=== PATIENT | female | born 1935 | race American Indian/Alaskan Native ===

== ENCOUNTER 2020-07-09 12:10 | Inpatient (IN) | payer MEDICARE, MEDICAID ==
[~2020-07-09] VITALS: Ht 165.1 cm; Wt 64.9 kg
[2020-07-09 12:17] VITALS: BP 90/46
[2020-07-09] MEDS ORDERED: ASA81BEC PO (12:29)
[2020-07-09] MEDS ORDERED: COLACE100 MG PO (12:30)
[2020-07-09] MEDS ORDERED: TRICOR145 MG PO (12:30)
[2020-07-09] MEDS ORDERED: LEXAPRO20 MG PO (12:30)
[2020-07-09] MEDS ORDERED: SLOW FE142 MG PO (12:31)
[2020-07-09] MEDS ORDERED: SEROQUEL 50 MG50 M1 PO (12:31)
[2020-07-09] MEDS ORDERED: SEROQUEL 100 M100 M1 PO (12:31)
[2020-07-09] MEDS ORDERED: SIMVASTATIN80 MG PO (12:32)
[2020-07-09] MEDS ORDERED: DESYREL150 MG PO (12:32)
[2020-07-09 12:33] LABS: ABSOLUTE BASOPHILS 0.1 thou/uL (0.0-0.2); ABSOLUTE EOSINOPHILS 0.5 thou/uL (0.0-0.7); ABSOLUTE LYMPHOCYTES 1.6 thou/uL (0.8-5.3); ABSOLUTE MONOCYTES 1.2 thou/uL (0.0-1.2); ABSOLUTE NEUTROPHILS 5.1 thou/uL (1.6-8.1); BASOPHILS 0.8 %; EOSINOPHILS 5.4 %; HEMATOCRIT 38.4 % (37.0-47.0); HEMOGLOBIN 12.9 gm/dL (12.0-15.0); LYMPHOCYTES 19.3 %; MCH 33.7 pg (26.0-34.0); MCHC 33.5 g/dL (28.0-37.0); MCV 100.5 fL (80.0-100.0); MONOCYTES 14.6 %; MPV 10.3 fl. (7.2-11.1); NUCLEATED RBCS 0 /100WBC; PLATELET COUNT* 147 thou/uL (150-400); POLYS 59.9 %; RBC 3.82 mil/uL (4.20-5.00); RDW-CV 14.9 % (10.5-14.5); WBC 8.4 thou/uL (4.0-11.0)
[2020-07-09] MEDS ORDERED: ULTRAM50 MG PO (12:33)
[2020-07-09] MEDS ORDERED: NAMENDA 10 MG T10 MG PO (12:33)
[2020-07-09] MEDS ORDERED: DEPAKOTE ER250 MG PO (12:33)
[2020-07-09] MEDS ORDERED: OXYBUTYNIN 5 MG5 M2 PO (12:34)
[2020-07-09] MEDS ORDERED: KLONOPIN0.5 MG PO (12:34)
[2020-07-09] MEDS ORDERED: IBUPROFEN200 MG PO (12:34)
[2020-07-09 12:40] LABS: CREATININE 1.2 mg/dL (0.6-1.3); POTASSIUM 3.7 mmol/L (3.5-5.1)
[2020-07-09 12:44] LABS: ALBUMIN 2.6 g/dL (3.4-5.0); TOTAL BILIRUBIN 0.7 mg/dL (<0.1-1.0); TOTAL PROTEIN 6.5 g/dL (6.4-8.2)
[2020-07-09 15:20] VITALS: BP 104/43
[2020-07-09 16:00] VITALS: BP 109/54
[2020-07-09 16:26] VITALS: BP 109/54
--- NOTE | 2020-07-09 17:13 | EKG ---
[place] [address] ELECTROCARDIOGRAM REPORT Name: JANET CORTES Room: [address] M.R.#: [id number] Admission: 07/09/20 Attend Phys: Oli Ann, Discharge: Date of : 39 Date of Service: 07/09/20 1215 Report #: [id number] THIS REPORT FOR: //name// [facility] ED Test Date: 2020-07-09 Test Time: 12:15:28 Pat Name: JANET CORTES Department: Room: [facility] Gender: F Lav Crewman: AARON : 1935 Requested By: Valdez Coreas Order Number: [id number] MD: Oni Moses Measurements Intervals Rosser Rate: 77 P: 94 NE: 147 QRS: 84 QRSD: 92 T: QT: 435 QTc: 493 Interpretive Statements Sinus rhythm Borderline right axis deviation Borderline low voltage, extremity leads Borderline repolarization abnormality Borderline prolonged QT interval Baseline wander in lead(s) III,aVF No previous ECG available for comparison Electronically Signed On 07-09-2020 17:13:13 CDT by Oni Moses [email or web address] <ELECTRONICALLY SIGNED> By: Luther Moses MD, FACC 07/09/20 1713 14 14 Luther Moses MD, FACC /EPI
[2020-07-09 17:30] VITALS: BP 98/60
[2020-07-09 20:00] VITALS: BP 99/44
[2020-07-10] VITALS: BP 89/41
[2020-07-10 04:00] VITALS: BP 90/41
[2020-07-10 08:00] VITALS: BP 115/55
[2020-07-10 12:00] VITALS: BP 89/44
[2020-07-10 14:43] LABS: URINE BLOOD NEGATIVE (Negative); URINE CLARITY CLEAR; URINE COLOR DARK YELLOW; URINE GLUCOSE-RANDOM NEGATIVE (Negative); URINE KETONES TRACE (Negative); URINE NITRITE-REFLEX NEGATIVE (Negative); URINE PROTEIN NEGATIVE (Negative)
[2020-07-10 14:44] LABS: URINE BILIRUBIN 2+ (Negative); URINE LEUKOCYTES-REFLEX 2+ (Negative)
[2020-07-10 14:45] LABS: ICTOTEST (BILI CONFIRMATORY) Negative (Negative)
[2020-07-10 14:50] LABS: SQUAMOUS 0-3 Few /LPF (0-3)
[2020-07-10 14:51] LABS: URINE RBC 0-2 Rare /HPF (0-2)
[2020-07-10 14:53] LABS: BACTERIA-REFLEX 1-9 Few /HPF (None Seen); CASTS None Seen /LPF (None Seen); CRYSTALS None Seen /LPF (None Seen); MUCUS None Seen strn/LPF (None Seen); URINE WBC-REFLEX 0-5 Rare /HPF (0-5)
--- NOTE | 2020-07-10 14:55 | 2DMMODE ---
[place] [address] 2 D/M-MODE ECHOCARDIOGRAM Name: JANET CORTES Room: [address] IN ..#: [id number] Admission: 07/09/20 Attend Phys: Oli Ann, Discharge: Date of : 39 Date of Service: 07/10/20 1455 Report #: [id number] THIS REPORT FOR: cc: Harlan Savage MD, Michael H. MD Holkins, John M. MD [facility] ~ APPROVED REPORT Study performed: 07/10/2020 11:09:50 EXAM: Comprehensive 2D, Doppler, and color-flow Echocardiogram Patient Location: Bedside BSA: 1.70 HR: 68 bpm Other Information Study Quality: Technically Limited Technically limited study due to inability to position patient. Indications CVA/TIA Echo Enhancing Agent Indication: Rule out Shunt Agent(s) / Amount(s) Used: Agitated Saline cc 2D Dimensions IVSd: 15.99 (7-11mm) LVOT Diam: 24.43 (18-24mm) LVDd: 46.12 mm PWd: 10.95 (7-11mm) Ascending Ao: 30.84 (22-36mm) LVDs: 28.45 (25-40mm) Aortic Root: 28.86 mm Volumes Left Atrial Volume (Systole) LA ESV Index: 20.20 mL/m2 Aortic Valve AoV Peak Jose.: 0.85 m/s AO Peak Gr.: 2.87 mmHg LVOT Max P.98 mmHg AO Mean Gr.: 1.47 mmHg LVOT Mean P.[address] [address] 2 D/M-MODE ECHOCARDIOGRAM Name: JANET CORTES Cameron Room: [address] IN [facility]#: [id number] Admission: 07/09/20 Attend Phys: Oli Ann, Discharge: Date of : 39 Date of Service: 07/10/20 1455 Report #: [id number] LVOT Max V: 0.70 m/s AO V2 VTI: 14.58 cm LVOT Mean V: 0.50 m/s MAHI (VTI): 6.16 cm2 LVOT V1 VTI: 19.16 cm Mitral Valve E/A Ratio: 0.67 MV Decel. Time: 171.97 ms MV E Max Jose.: 0.33 m/s MV PHT: 49.87 ms MVA (PHT): 4.41 cm2 TDI E/Lateral E': 3.30 E/Medial E': 3.67 Medial E' Jose.: 0.09 m/s Lateral E' Jose.: 0.10 m/s Left Ventricle The left ventricle is normal size. There is normal LV segmental wall motion. There is normal left ventricular wall thickness. Left ventricular systolic function is normal. The left ventricular ejection fraction is within the normal range. LVEF is 60%. Grade I - abnormal relaxation pattern. Right Ventricle The right ventricle is normal size. The right ventricular systolic function is normal. Atria The left atrium size is normal. Interatrial septum not well visualized. Injection of bubbles is not conclusive due to poor image quality. The right atrium size is normal. Aortic Valve The aortic valve is normal in structure. No aortic regurgitation is present. There is no aortic valvular stenosis. Mitral Valve The mitral valve is normal in structure. There is no mitral valve regurgitation noted. No evidence of mitral valve stenosis. Tricuspid Valve Tricuspid valve is not well visualized. There is no tricuspid valve regurgitation noted. Pulmonic Valve Pulmonic valve is not well visualized. There is [place] [address] 2 D/M-MODE ECHOCARDIOGRAM Name: JANET CORTES Room: [address]#: [id number] Admission: 07/09/20 Attend Phys: Oli Ann, Discharge: Date of : 39 Date of Service: 07/10/20 1455 Report #: [id number] regurgitation. Great Vessels The aortic root is normal in size. IVC is not visualized. Pericardium Mild anterior pericardial effusion. Possible pleural effusion. <Conclusion> The left ventricle is normal size. There is normal left ventricular wall thickness. Left ventricular systolic function is normal. The left ventricular ejection fraction is within the normal range. LVEF is 60%. Grade I - abnormal relaxation pattern. The right ventricle is normal size. The left atrium size is normal. The aortic valve is normal in structure. The mitral valve is normal in structure. Mild anterior pericardial effusion. There is normal LV segmental wall motion. Interatrial septum not well visualized. Injection of bubbles is not conclusive due to poor image quality. <ELECTRONICALLY SIGNED> By: Macho Mann MD, FACC 07/10/20 1455 1455 1455 Macho Mann MD, FACC /INF
[2020-07-10 15:54] VITALS: BP 106/55
[2020-07-10 20:00] VITALS: BP 114/52
[2020-07-11] VITALS: BP 88/35
[2020-07-11 04:00] VITALS: BP 101/46
[2020-07-11 05:16] LABS: HEMATOCRIT 35.3 % (37.0-47.0); HEMOGLOBIN 11.7 gm/dL (12.0-15.0); MCH 33.8 pg (26.0-34.0); MCHC 33.3 g/dL (28.0-37.0); MCV 101.5 fL (80.0-100.0); MPV 10.6 fl. (7.2-11.1); RBC 3.48 mil/uL (4.20-5.00); RDW-CV 15.4 % (10.5-14.5); WBC 6.2 thou/uL (4.0-11.0)
[2020-07-11 05:36] LABS: ALBUMIN 2.2 g/dL (3.4-5.0); CALCIUM 8.7 mg/dL (8.5-10.1); CREATININE 0.8 mg/dL (0.6-1.3); MAGNESIUM 1.6 mg/dL (1.8-2.4); POTASSIUM 3.1 mmol/L (3.5-5.1); TOTAL BILIRUBIN 0.6 mg/dL (<0.1-1.0); TOTAL PROTEIN 5.6 g/dL (6.4-8.2)
[2020-07-11 08:56] VITALS: BP 104/60
[2020-07-11 12:00] VITALS: BP 115/73
[2020-07-11 16:00] VITALS: BP 149/70
[2020-07-11 20:00] VITALS: BP 140/83
[2020-07-12] VITALS: BP 125/64
[2020-07-12 04:00] VITALS: BP 126/55
[2020-07-12 05:15] LABS: CALCIUM 8.9 mg/dL (8.5-10.1); CREATININE 0.7 mg/dL (0.6-1.3); MAGNESIUM 1.7 mg/dL (1.8-2.4)
[2020-07-12 08:00] VITALS: BP 141/55
[2020-07-12 15:22] VITALS: BP 114/70
[2020-07-12 20:00] VITALS: BP 112/62
[2020-07-13] VITALS: BP 114/87
[2020-07-13 05:43] LABS: CALCIUM 8.9 mg/dL (8.5-10.1); MAGNESIUM 1.6 mg/dL (1.8-2.4); POTASSIUM 3.4 mmol/L (3.5-5.1)
[2020-07-13] MEDS ORDERED: CELEXA 20 MG TA20 MG PO (08:15)
[2020-07-13] MEDS ORDERED: CORTEF 20 MG TA20 M1 PO (08:15)
[2020-07-13 08:25] VITALS: BP 126/51
[2020-07-13 10:18] VITALS: BP 126/51
[2020-07-13 12:06] LABS: CORTISOL 30 MIN 23.4 ug/dL (Not Estab.); CORTISOL 60 MIN 25.8 ug/dL (Not Estab.); CORTISOL BASELINE 17.1 ug/dL (())
[2020-07-13 12:18] VITALS: BP 126/51
[2020-07-13 14:05] VITALS: BP 126/51
== END 2020-07-13 14:15 | disposition home health service (06) | DRG 643 ==
LOC: M.ERS 12:10 → M.TBA-ER 13:42 → M.2W 15:25 → M.ORTHSURG 07-13 08:04
PROVIDERS: Emergency Medicine Emergency Medical Services; ADMIT Internal Medicine; ATTEND Internal Medicine
DX: E27.2 Addisonian crisis (principal); G92 Toxic encephalopathy; N17.0 Acute kidney failure with tubular necrosis; F03.91 Unspecified dementia, unspecified severity, with behavioral disturbance; J98.11 Atelectasis; I95.2 Hypotension due to drugs; I10 Essential (primary) hypertension; G47.30 Sleep apnea, unspecified; J44.9 Chronic obstructive pulmonary disease, unspecified; K21.9 Gastro-esophageal reflux disease without esophagitis; R55 Syncope and collapse; T50.995A Adverse effect of other drugs, medicaments and biological substances, initial encounter; G47.00 Insomnia, unspecified; E86.9 Volume depletion, unspecified; F20.9 Schizophrenia, unspecified; F32.9 Major depressive disorder, single episode, unspecified; M25.511 Pain in right shoulder; R13.10 Dysphagia, unspecified; E11.649 Type 2 diabetes mellitus with hypoglycemia without coma; Z20.828 Contact with and (suspected) exposure to other viral communicable diseases; Z90.12 Acquired absence of left breast and nipple; Y92.89 Other specified places as the place of occurrence of the external cause; Z79.82 Long term (current) use of aspirin; Z79.891 Long term (current) use of opiate analgesic; Z79.899 Other long term (current) drug therapy; Z88.8 Allergy status to other drugs, medicaments and biological substances